=== PATIENT | male | born 1995 | race Caucasian/White ===

== ENCOUNTER 2020-05-23 13:13 | Emergency (ER) | payer OTHER ==
[2020-05-23 13:19] VITALS: BP 151/101
[2020-05-23] MEDS ORDERED: HYDROCODONE/ACETAMINOPHEN 5-325 MG TABLET PO ONE (13:43)
[2020-05-23] MEDS ORDERED: CLINDAMYCIN HCL 150 MG CAPSULE PO ONE (13:43)
--- NOTE | 2020-05-23 13:48 | ER Document Report ---
HPI - HPI Time Seen by Provider: 05/23/20 13:40 Pain Level: 0 Notes: CHIEF COMPLAINT: Dog bite HPI: 26-year-old male presenting to the emergency department for evaluation of dog bite. States it was his family's mastiff. 2 dogs were fighting he got in between but was bitten by his family's dog. He states the dog is up-to-date on vaccinations. He is up-to-date on his tetanus vaccination. States he was bitten on the left thumb and right fourth finger. States he can flex and extend the digits but is complaining of pain. ROS: See HPI - all other systems were reviewed and are otherwise negative Constitutional: no fever Integumentary: no rash, positive laceration Allergy: no hives Musculoskeletal: + extremity pain or swelling Neurological: no numbness/tingling, no weakness MEDICATIONS: I agree with the patient medications as charted by the RN. ALLERGIES: I agree with the allergies as charted by the RN. PAST MEDICAL HISTORY/PAST SURGICAL HISTORY: Reviewed and agree as charted by RN. SOCIAL HISTORY: Reviewed and agree as charted by RN. FAMILY HISTORY: No significant familial comorbid conditions directly related to patient complaint EXAM: Reviewed vital signs as charted by RN. CONSTITUTIONAL: Alert and oriented and responds appropriately to questions. Well-appearing; well-nourished HEAD: Normocephalic; atraumatic EYES: Conjunctivae clear, sclerae non-icteric ENT: normal nose; no rhinorrhea; moist mucous membranes NECK: Supple without meningismus CARD: Capillary refill less than 3 seconds; symmetric distal pulses RESP: Normal chest excursion without splinting or tachypnea ABD/GI: non-distended BACK: The back appears normal EXT: Normal ROM in all joints; no cyanosis, no effusions, no edema. Superficial puncture wounds are noted to the distal aspect of the right fourth finger overlying the radial side of the medial and distal phalanx. No nail involvement. Patient is able to fully flex and extend the right fourth finger at the MCP, PIP, DIP joint space regions. Sensation is intact in the distal fingertip to touch with capillary refill less than 3 seconds. Several superficial puncture wounds to the dorsal and ulnar side of the left thumb. There is a laceration on the volar pad overlying the DIP joint space region measuring approximately 1.5 cm, reasonably well approximated no visible or palpable foreign body. Patient is able to flex and extend the thumb at the MCP and DIP joint space region. Sensation is intact in the distal tip of the thumb with capillary refill less than 3 seconds. SKIN: Normal color for age and race; warm; dry; good turgor NEURO: Moves all extremities equally; Motor and sensory function intact PSYCH: The patient's mood and manner are appropriate. Grooming and personal hygiene are appropriate. MDM: 25-year-old male with superficial puncture wounds to the right fourth finger, superficial puncture wounds to the dorsal side of the left thumb but a small laceration on the volar aspect of the left thumb. Given the concern for infection after dog bite will irrigate and clean the wounds, Steri-Strip the laceration on the thumb to give the opportunity to drain if it does become infected. Will obtain x-ray imaging to evaluate for bony injury or foreign body. Patient is up-to-date on his tetanus vaccination. - REPRODUCTIVE Reproductive: DENIES: : Past Medical History - Social History Smoking Status: Former Smoker Chew tobacco use (# tins/day): Yes Frequency of alcohol use: Occasional Drug Abuse: None Family History: Reviewed & Not Pertinent. denies: CAD Patient has homicidal ideation: No - Past Medical History Cardiac Medical History: Denies: Hx Coronary Artery Disease, Hx DVT, Hx Hypercholesterolemia, Hx Hypertension, Hx Pulmonary Embolism Past Surgical History: Reports: Hx Tonsillectomy - Immunizations Immunizations up to date: Yes Vertical Provider Document - INFECTION CONTROL TRAVEL OUTSIDE OF THE [place] IN LAST 30 DAYS: No Course - Vital Signs Vital signs: Temp Pulse Resp BP Pulse Ox 99.0 F 112 H 22 H 151/101 H 98 05/23/20 13:40 05/23/20 13:18 05/23/20 13:18 05/23/20 13:18 05/23/20 13:18 Discharge - Discharge Clinical Impression: Dog bite of left thumb Qualifiers: Encounter type: initial encounter Qualified Code(s): S61.052A - Open bite of left thumb without damage to nail, initial encounter; W54.0XXA - Bitten by dog, initial encounter Dog bite of finger Qualifiers: Encounter type: initial encounter Qualified Code(s): S61.259A - Open bite of unspecified finger without damage to nail, initial encounter; W54.0XXA - Bitten by dog, initial encounter Condition: Stable Disposition: HOME, SELF-CARE Instructions: Puncture Wound ([facility]) Additional Instructions: Clean the wound areas daily with soap and water apply a small amount of antibiotic ointment until healed. Pain medication as prescribed, do not drive if taking narcotics for pain. Take the antibiotics as prescribed. If you notice any redness or discharge from the wound areas return for reevaluation. X-ray imaging did not show evidence of a fracture or foreign body today Prescriptions: Clindamycin HCl 300 mg PO TID #21 capsule Naproxen 500 mg PO BID PRN #14 tablet PRN Reason: Hydrocodone/Acetaminophen [[place] 5-325 mg Tablet] 1 tab PO Q4 PRN #15 tablet PRN Reason:
--- NOTE | 2020-05-23 14:26 | RADIOLOGY REPORT (SQ) ---
EXAM DESCRIPTION: FINGER LEFT IMAGES COMPLETED DATE/TIME: 05/23/2020 2:12 pm REASON FOR STUDY: thumb COMPARISON: None. NUMBER OF VIEWS: Three views. TECHNIQUE: AP, lateral, and oblique images acquired of the left thumb. LIMITATIONS: None. FINDINGS: MINERALIZATION: Normal. BONES: No acute fracture or dislocation. No worrisome bone lesions. SOFT TISSUES: No soft tissue swelling. No foreign body. OTHER: No other significant finding. IMPRESSION: NO RADIOGRAPHIC EVIDENCE OF ACUTE INJURY. TECHNICAL DOCUMENTATION: JOB ID: [id number] 2010 [employer]- All Rights Reserved Reading location - IP/workstation name: [email or web address]
--- NOTE | 2020-05-23 14:27 | RADIOLOGY REPORT (SQ) ---
EXAM DESCRIPTION: FINGER RIGHT IMAGES COMPLETED DATE/TIME: 05/23/2020 2:12 pm REASON FOR STUDY: 4th COMPARISON: None. NUMBER OF VIEWS: Three views. TECHNIQUE: AP, lateral, and oblique images acquired of the right fourth finger. LIMITATIONS: None. FINDINGS: MINERALIZATION: Normal. BONES: No acute fracture or dislocation. No worrisome bone lesions. SOFT TISSUES: No soft tissue swelling. No foreign body. OTHER: No other significant finding. IMPRESSION: NO RADIOGRAPHIC EVIDENCE OF ACUTE INJURY. COMMENT: SITE OF TRAUMA/COMPLAINT MARKED/STAMP COMPLETED: Yes TECHNICAL DOCUMENTATION: JOB ID: [id number] [address]- All Rights Reserved Reading location - IP/workstation name: [email or web address]
== END 2020-05-23 14:43 | disposition home or self-care (01) ==
LOC: ER 13:13
DX: S61.052A Open bite of left thumb without damage to nail, initial encounter (principal); S60.474A Other superficial bite of right ring finger, initial encounter; W54.0XXA Bitten by dog, initial encounter; Y93.89 Activity, other specified; Z87.891 Personal history of nicotine dependence
CPT/HCPCS: 99283